=== PATIENT | female | born 1955 | race Caucasian/White ===

== ENCOUNTER 2021-06-13 06:02 | Day surgery (SDC) | payer OTHER, SELFPAY ==
[~2021-06-13] VITALS: Ht 157.5 cm; Wt 80.7 kg
[2021-06-13] MEDS ORDERED: MIDAZOLAM 5 MG/5 ML VIAL ONE (08:29)
[2021-06-13] MEDS ORDERED: LIDOCAINE 2% 100 MG/5 ML UJET TP ONE (08:29)
[2021-06-13] MEDS ORDERED: fentaNYL citrate 0.05 MG/ML VIAL ONE (08:29)
[2021-06-13] MEDS ORDERED: fentaNYL citrate 0.05 MG/ML VIAL IVP ONE (09:40)
[2021-06-13] MEDS ORDERED: MIDAZOLAM 2 MG/2 ML VIAL IVP ONE (09:40)
[2021-06-13] MEDS ORDERED: fentaNYL citrate 0.05 MG/ML VIAL IVP SCH (09:43)
[2021-06-13] MEDS ORDERED: MIDAZOLAM 2 MG/2 ML VIAL IVP SCH (09:44)
== END 2021-06-13 09:37 | disposition home or self-care (01) ==
LOC: MOR 06:02 → MMU 06:03 → MOR 09:37
PROVIDERS: ATTEND Internal Medicine Gastroenterology
DX: Z12.11 Encounter for screening for malignant neoplasm of colon (principal); K29.70 Gastritis, unspecified, without bleeding; K59.00 Constipation, unspecified; I10 Essential (primary) hypertension; E11.9 Type 2 diabetes mellitus without complications; E78.00 Pure hypercholesterolemia, unspecified; Z90.710 Acquired absence of both cervix and uterus; Z79.4 Long term (current) use of insulin; Z79.899 Other long term (current) drug therapy
CPT/HCPCS: 36415; 43239; 86677; 87426; G0121; J2250; J3010